=== PATIENT | male | born 1995 ===

== ENCOUNTER → 2017-08-05 | Outpatient (REF) ==
--- NOTE | 2017-08-05 13:38 | Diagnostic Imaging Report ---
INDICATION: POSITIVE TB SKIN TEST. COMPARISON: None. FINDINGS: Frontal and lateral views of the chest demonstrate normal heart size and pulmonary vascularity. The lungs are clear. There are no signs of infiltrate, pleural effusions or pneumothoraces. The visualized osseous structures show no acute abnormalities. IMPRESSION: 1. No acute process. No signs of infiltrates, effusions or pneumothoraces. Dictated by: Dictated on workstation # [id number]
== END | disposition home or self-care (01) ==
LOC: RAD 12:40
PROVIDERS: ATTEND Family Medicine
CPT/HCPCS: 71046